=== PATIENT | female | born 1960 | race Caucasian/White ===

== ENCOUNTER 2021-09-19 11:01 | Emergency (ER) | payer OTHER ==
[~2021-09-19] VITALS: Ht 160 cm; Wt 109.0 kg
[2021-09-19] MEDS ORDERED: MORPHINE SULFATE 4 MG/ML CPJ (NOT FOR IM USE) IV STA (12:01)
[2021-09-19 12:26] LABS: HEMATOCRIT. 41.1 % (36.0-48.0); HEMOGLOBIN. 13.5 g/dL (12.0-16.0); MEAN CORPUSCULAR HEMOGLOBIN 30.3 pg (28.0-32.0); MEAN CORPUSCULAR VOLUME 92.2 fL (81.0-99.0); MEAN PLATELET VOLUME 7.3 fl (7.4-10.4); PLATELET 373 x1000/uL (130-400); RED BLOOD CELL COUNT 4.46 mill/uL (4.2-5.4); RED CELL DISTRIBUTION WIDTH 14.7 % (11.6-14.6)
[2021-09-19 12:34] LABS: CHLORIDE 107 mEq/L (98-107)
[2021-09-19 13:32] LABS: PLATELET ESTIMATE NORMAL
[2021-09-19 16:34] LABS: CLARITY URINE CLEAR (CLEAR); COLOR URINE YELLOW (YELLOW); KETONES URINE NEGATIVE (NEGATIVE); LEUKOCYTE ESTERASE URINE NEGATIVE (NEGATIVE); NITRITE URINE NEGATIVE (NEGATIVE); OCCULT BLOOD URINE NEGATIVE (NEGATIVE); PH URINE 5.5 (4.5-8.0); PROTEIN URINE NEGATIVE (NEGATIVE); SPECIFIC GRAVITY URINE 1.024 (1.005-1.030); UROBILINOGEN URINE 0.2 E.U./dL (0.2-1.0)
[2021-09-19] MEDS ORDERED: HYDR-4001 MT (17:41)
[2021-09-19] MEDS ORDERED: IOHEXOL-350 100 ML BOTTLE ONE (17:53)
[2021-09-19] MEDS ORDERED: IOHEXOL-300 100 ML BOTTLE ONE (18:04)
[2021-09-19] MEDS ORDERED: HYDROCODONE/ACETAMINOPHEN 5/325MG TABLET PO ONE (18:15)
[2021-09-19 18:39] VITALS: BP 140/70
[2021-09-19] MEDS ORDERED: DEXAMETHASONE 10 MG/ML VIAL IV ONE (19:00)
== END 2021-09-19 19:55 | disposition home or self-care (01) ==
LOC: ER 12:10
DX: M54.9 Dorsalgia, unspecified (principal); I10 Essential (primary) hypertension; M10.9 Gout, unspecified; Z88.1 Allergy status to other antibiotic agents; Z88.8 Allergy status to other drugs, medicaments and biological substances
CPT/HCPCS: 36415; 72148; 74177; 80053; 81003; 83690; 85025; 96374; 96375; 99285; J1100; J2270; Q9967